=== PATIENT | female | born 2000 | race Caucasian/White ===

== ENCOUNTER → 2020-02-15 08:18 | Outpatient (CLI) | payer BC, OTHER, SELFPAY ==
--- NOTE | ~2020-02-15 | US_ITS ---
EXAMINATION: US OB >= 14 weeks Fetus DATE: 02/15/2020 09:14 INDICATION: Second trimester anatomic survey TECHNIQUE: Real-time ultrasound of the pelvis was performed. COMPARISON: None. FINDINGS: There is a single living fetus in vertex presentation. The placenta is anterior and 2.3 cm from the i nternal cervical os. heart rate is 153 beats per minute (bpm). cardiac activity and feta l movement are noted. The amniotic fluid index is subjectively normal. The following anatomy was identified as normal: 4 chamber heart 3 vessel cord cord insertion kidneys urinary bladder stomach spine diaphragm ventricles cisterna magna cerebellum The following biometric data were obtained: Biparietal diameter (BPD): 4.4 cm; head circumference (HC): 17.1 cm; abdominal circumference (AC): 15 .9 cm; femur length (FL): 3.2 cm. These measurements are concordant. Estimated weight is 361 g +/- 54 g, which correlates with the 52nd percentile when 07/01/2020 is used as estimated date of delivery. As single measurements, these parameters are each equal to the following estimated gestational ages w ith ranges of +/- 2 standard deviations: BPD: 19 weeks 3 days ( 17 weeks 5 days - 21 weeks 1 days). HC: 19 weeks 5 days ( 18 weeks 2 days - 21 weeks 2 days). AC: 21 weeks 1 days ( 19 weeks 0 days - 23 weeks 1 days). FL: 20 weeks 2 days ( 18 weeks 3 days - 22 weeks 0 days). estimated gestational age based solely on measurements from this exam is 20 weeks 1 days +/- 1 weeks 3 days. IMPRESSION: 1. Single living fetus in vertex presentation. 2. Estimated weight is 361 g +/- 54 g, which correlates with the 52nd percentile when 07/01/2020 is used as estimated date of delivery. Reviewed, dictated and finalized at location A. IMPRESSION: 1. Single living fetus in vertex presentation. 2. Estimated weight is 361 g +/- 54 g, which correlates with the 52nd per centile when 07/01/2020 is used as estimated date of delivery.
== END ==
PROVIDERS: Visit Provider Obstetrics & Gynecology
DX: Z36.9 Encounter for antenatal screening, unspecified (principal); Z3A.20 20 weeks gestation of pregnancy
CPT/HCPCS: 76805